=== PATIENT | male | born 1975 | race Two or more races ===

== ENCOUNTER 2023-05-27 05:10 | Inpatient (IN) | payer MEDICAID ==
[~2023-05-27] VITALS: Ht 165.1 cm; Wt 79.1 kg
[2023-05-27 06:35] LABS: Urine Bacteria NONE SEEN /hpf (None Seen); Urine Blood 1+ /uL (Negative); Urine Clarity Clear (Clear); Urine Color Yellow (Yellow); Urine Mucus FEW (None Seen); Urine Protein, UAD TRACE (Negative); Urine Specific Gravity 1.028 (1.001-1.035); Urine WBC 1 /hpf (0 - 3); Urine pH 6.5 (5.0-8.0)
[2023-05-27 06:56] LABS: Basophils # (auto) 0 10 ^3/uL (0-0.2); Basophils % (auto) 0.1 % (0.0-2.0); Eosinophils # (auto) 0 10 ^3/uL (0-0.8); Eosinophils % (auto) 0.1 % (0.0-7.0); Hematocrit 45.2 % (41.0-53.0); Hemoglobin 15.7 g/dL (13.5-17.5); Mean Corpuscular Hemoglobin 31.3 pg (28.0-32.0); Mean Corpuscular Hgb Conc. 34.7 g/dL (32.0-36.0); Mean Corpuscular Volume 90.1 fL (80.0-100.0); Monocytes # (auto) 0.8 10 ^3/uL (0-1.3); Monocytes % (auto) 6.9 % (0.0-12.0); Neutrophils # (auto) 10.3 10 ^3/uL (1.6-8.6); Neutrophils % (auto) 84.9 % (37.0-80.0); Red Blood Cells 5.02 10^6/uL (4.5-5.90); White Blood Cell 12.1 10^3/uL (4.4-10.8)
[2023-05-27] MEDS ORDERED: SODIUM CHLORIDE 0.9% 1,000 ML IV ONE ×2 (07:00)
[2023-05-27] MEDS ORDERED: ONDANSETRON HCL 4 MG/2 ML VIAL IV ONE (07:00)
[2023-05-27] MEDS ORDERED: MORPHINE SULFATE 4 MG/ML SYR/VIAL IV ONE (07:00)
[2023-05-27] MEDS ORDERED: cefTRIAXone 1GM/50ML D5W 50 ML IV ONE (07:00)
[2023-05-27 07:04] LABS: Alanine Aminotransferase 20 U/L (7-40); Albumin 4.3 g/dL (3.2-4.8); Alkaline Phosphatase 82 U/L (46-116); Anion Gap 9 (5-15); Aspartate Aminotransferase 15 U/L (13-40); BUN/Creatinine Ratio 9.5 (10.0-20.0); Blood Urea Nitrogen 6 mg/dL (9-23); Carbon Dioxide 25 mmol/L (20-30); Chloride 103 mmol/L (98-107); Glucose 98 mg/dL (74-106); Potassium 4.2 mmol/L (3.5-5.1); Sodium 137 mmol/L (136-145)
[2023-05-27 07:05] LABS: Bilirubin, Total 3.2 mg/dL (0.2-1.0); Total Protein 6.6 g/dL (5.7-8.2)
[2023-05-27 07:25] LABS: Lipase 36 U/L (12-53)
[2023-05-27] MEDS ORDERED: IOHEXOL 300 MG/ML 100ML BOTTLE IJ ONE (07:34)
[2023-05-27] MEDS ORDERED: PANTOPRAZOLE 40 MG/10 ML VIAL INJ IV ONE (10:45)
[2023-05-27] MEDS: SODIUM CHLORIDE 0.9% 1,000 ML IV SCH ×3 (13:08→22:45)
[2023-05-27] MEDS: MORPHINE SULFATE INJ 2 MG/ml SYRG IV PRN ×2 (14:34→19:15)
[2023-05-27] MEDS: ONDANSETRON HCL 4 MG/2 ML VIAL IV PRN ×2 (14:35→19:15)
[2023-05-27 19:40] VITALS: PULSE 94; RESP 18; O2SAT 95
[2023-05-27 22:21] VITALS: BP 121/85; PULSE 88; RESP 18; TEMP 100.3; O2SAT 95
[2023-05-27] MEDS: ACETAMINOPHEN 325 MG TAB PO PRN (22:36)
[2023-05-28] VITALS (8 sets, daily range): BP systolic 109–129; BP diastolic 67–90; PULSE 72–94; RESP 16–22; TEMP 98.5–100.2; O2SAT 94–98
[2023-05-28 06:31] LABS: Basophils # (auto) 0 10 ^3/uL (0-0.2); Basophils % (auto) 0.2 % (0.0-2.0); Eosinophils # (auto) 0 10 ^3/uL (0-0.8); Hemoglobin 13.9 g/dL (13.5-17.5); Lymphocytes % (auto) 6.5 % (10.0-50.0); Mean Corpuscular Hemoglobin 31.4 pg (28.0-32.0); Mean Corpuscular Hgb Conc. 34.8 g/dL (32.0-36.0); Mean Corpuscular Volume 90.2 fL (80.0-100.0); Monocytes # (auto) 1.2 10 ^3/uL (0-1.3); Monocytes % (auto) 8.2 % (0.0-12.0); Neutrophils # (auto) 12.8 10 ^3/uL (1.6-8.6); Neutrophils % (auto) 85.1 % (37.0-80.0); Red Blood Cells 4.44 10^6/uL (4.5-5.90); Red Cell Distribution Width 12.8 % (11.8-14.3)
[2023-05-28 06:35] LABS: Alanine Aminotransferase 18 U/L (7-40); Alkaline Phosphatase 71 U/L (46-116); Anion Gap 9 (5-15); BUN/Creatinine Ratio 11.3 (10.0-20.0); Blood Urea Nitrogen 6 mg/dL (9-23); Calcium 7.6 mg/dL (8.5-10.1); Carbon Dioxide 23 mmol/L (20-30); Chloride 103 mmol/L (98-107); Glucose 78 mg/dL (74-106); Potassium 3.8 mmol/L (3.5-5.1); Sodium 135 mmol/L (136-145)
[2023-05-28 06:36] LABS: Albumin 3.8 g/dL (3.2-4.8); Aspartate Aminotransferase 14 U/L (13-40); Bilirubin, Total 4.1 mg/dL (0.2-1.0); Total Protein 5.8 g/dL (5.7-8.2)
[2023-05-28] MEDS: cefTRIAXone 1GM/50ML D5W 50 ML IV SCH (09:23)
[2023-05-28] MEDS: PANTOPRAZOLE 40 MG/10 ML VIAL INJ IV SCH (09:24)
[2023-05-28] MEDS: SODIUM CHLORIDE 0.9% 1,000 ML IV SCH ×2 (12:10→20:05)
[2023-05-28] MEDS: ACETAMINOPHEN 325 MG TAB PO PRN ×2 (13:00→23:13)
[2023-05-28] MEDS: metroNIDAZOLE 500MG/100ML 100 ML IV SCH ×2 (15:05→21:34)
[2023-05-29 05:00] VITALS: BP 118/64; PULSE 75; RESP 20; TEMP 98.8; O2SAT 91
[2023-05-29] MEDS: SODIUM CHLORIDE 0.9% 1,000 ML IV SCH ×3 (06:27→20:41)
[2023-05-29] MEDS: metroNIDAZOLE 500MG/100ML 100 ML IV SCH ×3 (06:27→21:54)
[2023-05-29 06:52] LABS: Basophils # (auto) 0 10 ^3/uL (0-0.2); Basophils % (auto) 0.1 % (0.0-2.0); Eosinophils # (auto) 0 10 ^3/uL (0-0.8); Eosinophils % (auto) 0.1 % (0.0-7.0); Hematocrit 38.2 % (41.0-53.0); Lymphocytes # (auto) 1.1 10 ^3/uL (0.4-5.4); Lymphocytes % (auto) 8.5 % (10.0-50.0); Mean Corpuscular Hemoglobin 30.7 pg (28.0-32.0); Mean Corpuscular Hgb Conc. 34.1 g/dL (32.0-36.0); Monocytes % (auto) 7.8 % (0.0-12.0); Neutrophils # (auto) 10.5 10 ^3/uL (1.6-8.6); Neutrophils % (auto) 83.5 % (37.0-80.0); Nucleated Red Blood Cells % 0.1 %; Red Blood Cells 4.24 10^6/uL (4.5-5.90); Red Cell Distribution Width 12.7 % (11.8-14.3); White Blood Cell 12.6 10^3/uL (4.4-10.8)
[2023-05-29 07:12] LABS: INR 1.16 (0.9-1.15); Partial Thromboplastin Time 39.7 SEC (24.5-34.5); Prothrombin Time 12.1 sec (9.3-11.8)
[2023-05-29 07:16] LABS: Alanine Aminotransferase 21 U/L (7-40); Albumin 4.1 g/dL (3.2-4.8); Alkaline Phosphatase 89 U/L (46-116); Anion Gap 7 (5-15); Aspartate Aminotransferase 11 U/L (13-40); BUN/Creatinine Ratio 13.7 (10.0-20.0); Blood Urea Nitrogen 10 mg/dL (9-23); Calcium 8.6 mg/dL (8.7-10.4); Carbon Dioxide 26 mmol/L (20-30); Chloride 103 mmol/L (98-107); Glucose 82 mg/dL (74-106); Sodium 136 mmol/L (136-145)
[2023-05-29 07:17] LABS: Bilirubin, Total 3.6 mg/dL (0.2-1.0); Total Protein 6.5 g/dL (5.7-8.2)
[2023-05-29 09:32] VITALS: BP 112/69; PULSE 82; RESP 20; TEMP 99.3; O2SAT 95
[2023-05-29] MEDS: cefTRIAXone 1GM/50ML D5W 50 ML IV SCH (09:39)
[2023-05-29] MEDS: PANTOPRAZOLE 40 MG/10 ML VIAL INJ IV SCH (09:39)
[2023-05-29 12:41] VITALS: BP 124/78; PULSE 86; RESP 20; TEMP 100; O2SAT 96
[2023-05-29] MEDS: ACETAMINOPHEN 325 MG TAB PO PRN (16:51)
[2023-05-29 17:08] VITALS: BP 111/66; PULSE 84; RESP 20; TEMP 100.5; O2SAT 96
[2023-05-29 17:56] VITALS: TEMP 98.8
[2023-05-29 22:00] VITALS: BP 116/74; PULSE 65; RESP 20; TEMP 98.4; O2SAT 97
[2023-05-30] VITALS (8 sets, daily range): BP systolic 107–130; BP diastolic 68–79; PULSE 61–103; RESP 14–22; TEMP 98.4–99.7; O2SAT 94–100
[2023-05-30] MEDS: metroNIDAZOLE 500MG/100ML 100 ML IV SCH ×3 (06:10→21:39)
[2023-05-30] MEDS: SODIUM CHLORIDE 0.9% 1,000 ML IV SCH ×4 (06:10→21:22)
[2023-05-30] MEDS: PANTOPRAZOLE 40 MG/10 ML VIAL INJ IV SCH (08:55)
[2023-05-30] MEDS: cefTRIAXone 1GM/50ML D5W 50 ML IV SCH (08:55)
[2023-05-30] MEDS ORDERED: fentaNYL CITRATE 100 MCG/2 ML VL ONE (13:18)
[2023-05-30] MEDS ORDERED: MIDAZOLAM HCL 2MG/2ML 2ml VIAL (1mg/ml) ONE (13:18)
[2023-05-30] MEDS ORDERED: ONDANSETRON HCL 4 MG/2 ML VIAL ONE (13:22)
[2023-05-30] MEDS ORDERED: LIDOCAINE 2% (LOCAL ANESTH.) PF 5ml SDV ONE (13:22)
[2023-05-30] MEDS ORDERED: BUPIVACAINE 0.5% P/F INJ 10 ML VIAL ONE (13:39)
[2023-05-30] MEDS ORDERED: HYDROmorphone HCL 2 MG/ML VL/or syr IV PRN (14:30)
[2023-05-30] MEDS ORDERED: ONDANSETRON HCL 4 MG/2 ML VIAL IV PRN (14:30)
[2023-05-30] MEDS ORDERED: PROPOFOL 10 MG/ML 20 ML IV ONE (15:30)
[2023-05-30] MEDS ORDERED: NEOSTIGMINE 1 MG/ML INJ (10mg/10ML VIAL) ONE (15:31)
[2023-05-30] MEDS ORDERED: GLYCOPYRROLATE 0.2 MG/ML 1ML VIAL ONE (15:31)
[2023-05-30] MEDS ORDERED: ROCURONIUM 10MG/ML 10ML VIAL IV ONE (15:35)
[2023-05-30] MEDS: HYDROmorphone HCL 2 MG/ML VL/or syr IV PRN ×2 (15:54→16:30)
[2023-05-30] MEDS: MORPHINE SULFATE INJ 2 MG/ml SYRG IV PRN (21:35)
[2023-05-31] VITALS (7 sets, daily range): BP systolic 109–132; BP diastolic 73–85; PULSE 56–70; RESP 18–20; TEMP 98.4–99.1; O2SAT 91–99
[2023-05-31] MEDS: MORPHINE SULFATE INJ 2 MG/ml SYRG IV PRN ×5 (01:28→22:14)
[2023-05-31 05:00] LABS: Basophils # (auto) 0 10 ^3/uL (0-0.2); Basophils % (auto) 0.2 % (0.0-2.0); Eosinophils # (auto) 0 10 ^3/uL (0-0.8); Eosinophils % (auto) 0.5 % (0.0-7.0); Hemoglobin 12.4 g/dL (13.5-17.5); Lymphocytes # (auto) 1.2 10 ^3/uL (0.4-5.4); Lymphocytes % (auto) 16.4 % (10.0-50.0); Mean Corpuscular Hemoglobin 31.1 pg (28.0-32.0); Mean Corpuscular Hgb Conc. 34.5 g/dL (32.0-36.0); Mean Corpuscular Volume 90.3 fL (80.0-100.0); Monocytes # (auto) 0.5 10 ^3/uL (0-1.3); Monocytes % (auto) 7.4 % (0.0-12.0); Neutrophils # (auto) 5.5 10 ^3/uL (1.6-8.6); Neutrophils % (auto) 75.5 % (37.0-80.0); Red Blood Cells 3.99 10^6/uL (4.5-5.90); Red Cell Distribution Width 12.7 % (11.8-14.3); White Blood Cell 7.3 10^3/uL (4.4-10.8)
[2023-05-31 05:18] LABS: Alanine Aminotransferase 28 U/L (7-40); Albumin 3.7 g/dL (3.2-4.8); Alkaline Phosphatase 90 U/L (46-116); Anion Gap 5 (5-15); Aspartate Aminotransferase 36 U/L (13-40); BUN/Creatinine Ratio 7.1 (10.0-20.0); Bilirubin, Total 1.1 mg/dL (0.2-1.0); Blood Urea Nitrogen 5 mg/dL (9-23); Carbon Dioxide 29 mmol/L (20-30); Chloride 102 mmol/L (98-107); Glucose 110 mg/dL (74-106); Potassium 3.6 mmol/L (3.5-5.1); Sodium 136 mmol/L (136-145)
[2023-05-31] MEDS: metroNIDAZOLE 500MG/100ML 100 ML IV SCH ×3 (05:28→22:07)
[2023-05-31] MEDS: ACETAMINOPHEN 325 MG TAB PO PRN (08:39)
[2023-05-31] MEDS: cefTRIAXone 1GM/50ML D5W 50 ML IV SCH (08:41)
[2023-05-31] MEDS: PANTOPRAZOLE 40 MG/10 ML VIAL INJ IV SCH (09:17)
[2023-05-31] MEDS: SODIUM CHLORIDE 0.9% 1,000 ML IV SCH (13:49)
[2023-06-01] MEDS: SODIUM CHLORIDE 0.9% 1,000 ML IV SCH ×3 (03:15→21:15)
[2023-06-01 04:53] VITALS: BP 138/87; PULSE 75; RESP 18; TEMP 98; O2SAT 94
[2023-06-01] MEDS: metroNIDAZOLE 500MG/100ML 100 ML IV SCH ×3 (05:30→21:33)
[2023-06-01 08:00] VITALS: BP 137/75; PULSE 106; PULSE 70; RESP 18; TEMP 98.6; O2SAT 92; O2SAT 98
[2023-06-01] MEDS: PANTOPRAZOLE 40 MG/10 ML VIAL INJ IV SCH (09:04)
[2023-06-01] MEDS: cefTRIAXone 1GM/50ML D5W 50 ML IV SCH (09:05)
[2023-06-01 12:46] VITALS: BP 113/74; PULSE 65; RESP 18; TEMP 98.6; O2SAT 92
[2023-06-01 17:00] VITALS: BP 113/70; PULSE 71; RESP 16; TEMP 98.6; O2SAT 99
[2023-06-01 20:00] VITALS: PULSE 64; RESP 15; O2SAT 95
[2023-06-01 22:00] VITALS: BP 125/81; PULSE 64; RESP 15; TEMP 98; O2SAT 95
[2023-06-02] MEDS: SODIUM CHLORIDE 0.9% 1,000 ML IV SCH (01:53)
[2023-06-02 05:00] VITALS: BP 126/83; PULSE 58; RESP 16; TEMP 98.2; O2SAT 96
[2023-06-02] MEDS: metroNIDAZOLE 500MG/100ML 100 ML IV SCH (05:25)
[2023-06-02 08:00] VITALS: PULSE 58; RESP 16; O2SAT 96
[2023-06-02 09:00] VITALS: BP 131/95; PULSE 70; RESP 14; TEMP 98; O2SAT 95
[2023-06-02] MEDS: cefTRIAXone 1GM/50ML D5W 50 ML IV SCH (09:03)
[2023-06-02] MEDS: PANTOPRAZOLE 40 MG/10 ML VIAL INJ IV SCH (09:03)
[2023-06-02] MEDS ORDERED: AMOX500T86 PO (11:18)
[2023-06-02] MEDS ORDERED: TRAM50TA2 PO (11:18)
[2023-06-02 13:00] VITALS: BP 105/72; PULSE 63; RESP 16; TEMP 98.7; O2SAT 99
[2023-06-02 14:30] VITALS: BP 105/72; PULSE 63; RESP 16; TEMP 98.7; O2SAT 99
== END 2023-06-02 15:36 | disposition home or self-care (01) | DRG 710 ==
LOC: ER 05:10 → OVERFLOW 10:47 → WEST WING 22:24
PROVIDERS: ADMIT Nurse Practitioner Family; ATTEND Internal Medicine
PROC: 0FT44ZZ Resection of Gallbladder, Percutaneous Endoscopic Approach (ICD-10-PCS; principal; 2023-05-30 13:14)
DX: A41.9 Sepsis, unspecified organism (principal); K80.00 Calculus of gallbladder with acute cholecystitis without obstruction; E86.0 Dehydration; E66.9 Obesity, unspecified; Z68.27 Body mass index [BMI] 27.0-27.9, adult; Z83.3 Family history of diabetes mellitus
CPT/HCPCS: 36415; 74177; 76705; 80053; 81001; 83605; 83690; 85025; 85610; 85730; 87040; 96361; 96374; 96375; C9113; G0378; J0696; J2001; J2250; J2405; J2704; J3490